=== PATIENT | male | born 1990 | race Two or more races ===

== ENCOUNTER 2017-03-04 05:47 | Emergency (ER) | payer SELFPAY ==
[2017-03-04 06:06] VITALS: BP 104/60; PULSE 83; RESP 18; TEMP 97.8; O2SAT 100
--- NOTE | 2017-03-04 06:36 | ED PDOC ---
HPI: Psych/Substance Abuse Time Seen by Provider: 03/04/17 06:04 Chief Complaint (Nursing): Alcohol Ingestion Chief Complaint (Provider): Alcohol Ingestion ED Caveat: Intoxicated History Per: Patient History/Exam Limitations: intoxication Onset/Duration Of Symptoms: Mins (prior to arrival) Current Symptoms Are (Timing): Still Present Additional Complaint(s): Royce Anand is a 26 year old male who presents to the emergency department for an evaluation of alcohol intoxication prior to arrival. Denied trauma or injury. Patient admits to drinking too much alcohol tonight. PMD: none provided Past Medical History Reviewed: Nursing Documentation, Vital Signs Vital Signs: Last Vital Signs Temp 97.8 F 03/04/17 06:02 Pulse 83 03/04/17 06:02 Resp 18 03/04/17 06:02 BP 104/60 03/04/17 06:02 Pulse Ox 100 03/04/17 06:02 - Family History Family History: States: Unknown Family Hx - Social History Current smoker - smoking cessation education provided: No Alcohol: Social Drugs: Denies - Allergies Allergies/Adverse Reactions: Allergies Allergy/AdvReac Type Severity Reaction Status Date / Time No Known Allergies Allergy Verified 03/04/17 06:01 Review of Systems Review Of Systems: ROS cannot be obtained secondary to pt's inabilty to answer questions. (intoxication) Constitutional: Negative for: Other (trauma/injury) Physical Exam - Reviewed Nursing Documentation Reviewed: Yes Vital Signs Reviewed: Yes - Physical Exam Appears: Positive for: Well (but intoxicated), Non-toxic, No Acute Distress Cardiovascular/Chest: Positive for: Regular Rate, Rhythm. Negative for: Chest Non Tender Respiratory: Positive for: Normal Breath Sounds. Negative for: Respiratory Distress Gastrointestinal/Abdominal: Positive for: Normal Exam, Bowel Sounds, Soft. Negative for: Tenderness Extremity: Positive for: Normal ROM. Negative for: Tenderness, Pedal Edema, Deformity Neurologic/Psych: Positive for: Alert (x2) - ECG O2 Sat by Pulse Oximetry: 100 (RA) Pulse Ox Interpretation: Normal Medical Decision Making Medical Decision Making: Initial Impression: ETOH intoxication Initial Plan: * Accucheck * Admit to hospital Time: 0620 --Patient is awake and alert for discharge home. Scribe Attestation: Documented by Tootie Torrez, acting as a scribe for Cj Barros MD. Provider Scribe Attestation: All medical record entries made by the Scribe were at my direction and personally dictated by me. I have reviewed the chart and agree that the record accurately reflects my personal performance of the history, physical exam, medical decision making, and the department course for this patient. I have also personally directed, reviewed, and agree with the discharge instructions and disposition. Disposition - Clinical Impression Clinical Impression: Alcohol abuse - Disposition Referrals: Alcoholics Anonymous [Outside] Disposition: Routine/Home Disposition Time: 06:43 Condition: STABLE Instructions: Abuse of Alcohol (ED) Forms: [employer] (Divehi)
== END 2017-03-04 06:38 | disposition home or self-care (01) ==
LOC: H.ER 05:47
DX: F10.10 Alcohol abuse, uncomplicated (principal)